=== PATIENT | male | born 1970 | race Caucasian/White ===

== ENCOUNTER → 2018-09-30 | Outpatient (CLI) | payer OTHER ==
--- NOTE | 2018-09-30 15:46 | CT ---
EXAMINATION TYPE: CT abdomen w con DATE OF EXAM: 09/30/2018 COMPARISON: 12/20/2015 HISTORY: 48-year-old male Upper to mid abdominal pain, weight loss TECHNIQUE: Contiguous axial scanning of the abdomen following administration of 100 ml Isovue 300 IV contrast. Delayed images through the kidneys and coronal/sagittal reconstructions performed. CT DLP: 1517.8 mGycm Automated exposure control for dose reduction was used. FINDINGS: Heart normal size without pericardial effusion. Strandy atelectasis at the lung bases without pleural effusion. Stable peripherally oriented vascular blush anterior mid liver, axial image 17 could represent a smal l flash filling hemangioma or vascular shunting. No other focal liver lesion. No biliary ductal dilat ation. Portal venous system is patent. Gallbladder, adrenal glands, right kidney, spleen with tiny anterior splenules, and pancreas appear w ithin normal limits. There is a 1 cm hypodense lesion medial aspect of the left kidney lower pole too small for accurate C T characterization, probable cyst though noted to be new from 2015. This can be reassessed at short i nterval follow-up. No dilated small bowel, free fluid, or free air. No mesenteric or retroperitoneal lymphadenopathy. Tiny fatty umbilical hernia is unchanged. Normal appendix. There is some circumferential wall thickening involving the inferior aspect of the cecum which could represent peripherally positioned stool material or abnormal wall thickening and direct visualization can further evaluate, reference axial image 42 and sagittal image 31. Prominent fatty ileocecal valve likely some normal variation. Mild stool burden. No pericolonic infl ammatory change. Pelvis is not imaged. Bones: No osseous destructive process. IMPRESSION: 1. A 1 CM HYPODENSE LESION LOWER POLE OF THE LEFT KIDNEY TOO SMALL FOR ACCURATE CT CHARACTERIZATION, PROBABLE TINY CYST THOUGH NEW FROM 12/20/2015. THIS IS NEW, PRECAUTIONARY 6 MONTH FOLLOW-UP RECOMME NDED TO EXCLUDE THE LESS LIKELY POSSIBILITY OF AN EARLY SMALL SOLID MASS. 2. MURAL-BASED THICKENING OF THE INFERIOR CECUM COULD REPRESENT ADHERENT STOOL OR NEOPLASM. DIRECT SUALIZATION CAN FURTHER EVALUATE. 3. TINY FAT-CONTAINING UMBILICAL HERNIA IS UNCHANGED.
== END | disposition home or self-care (01) ==
LOC: RADCTMAIN 14:11
PROVIDERS: ATTEND Family Medicine
DX: K42.9 Umbilical hernia without obstruction or gangrene (principal); N28.9 Disorder of kidney and ureter, unspecified
CPT/HCPCS: 74160; Q9967

== ENCOUNTER 2018-10-21 13:50 | Day surgery (SDC) | payer OTHER ==
[2018-10-20 14:23] VITALS: BMI 32.7
[~2018-10-21 13:50] MED LIST: LACTATED RINGERS 1,000 ML IV SCH
[2018-10-21 14:05] VITALS: RESP 16; TEMP 98.8
[2018-10-21] MEDS ORDERED: LIDOCAINE 1% 20 ML VIAL (10MG/ML) FOR IV START INTRADERMA ONE (14:11)
[2018-10-21] MEDS ORDERED: LIDOCAINE 1% INJ 10MG/ML (20 ML MDV) ONE (14:13)
[2018-10-21] MEDS ORDERED: PROPOFOL 10 MG/ML 20 ML VIAL IV ONE (14:13)
[2018-10-21] MEDS ORDERED: MIDAZOLAM 2 MG/2 ML VIAL ONE (14:13)
[2018-10-21] MEDS ORDERED: fentaNYL (PF) 50 MCG/ML 2 ML AMP ONE (14:13)
--- NOTE | 2018-10-21 14:55 | P.PCN ---
Date of Procedure: 10/21/18 Procedure(s) Performed: Procedures: 1. Esophagogastroduodenoscopy and biopsy. 2. Total colonoscopy. Preoperative diagnosis: Change in bowel habits and abnormal CT showing circumferential thickening in the cecum. Postoperative diagnosis: 1. Small sliding hiatal hernia with no obvious esophagitis or complicated reflux disease. 2. Antral gastritis and duodenitis. 3. Colon exam reveals mild diverticulosis, otherwise, within normal limits. Preparation: HalfLytely prep. Sedation: Was provided by anesthesia. Brief clinical history: The patient is a 48-year-old male who I have evaluated in the office earlier this month regarding abdominal pain and change in bowel habits. He tends to have constipation. He had a colonoscopy in 2016 that showed diverticulosis. No dietary triggers. Computed tomography scan of the abdomen last month showed prominent ileocecal valve and circumferential thickening in the cecum. Procedure: With the patient on his left lateral decubitus position and after informed consent and adequate sedation, I passed the Olympus-GIF H 190 video upper endoscope through the cricopharyngeus down the esophagus. GE junction was around 40 cm from the incisors and there was a small sliding hiatal hernia but no obvious esophagitis or complicated reflux disease. The endoscope was then passed into the stomach which was insufflated with air and inspected in detail including the retroflex view in the cardia. There was mottling and erythema in the antrum but no ulcers or erosions. Pyloric channel did not show any ulcers. Duodenal bulb, post bulbar area and descending duodenum were examined and it showed erythema and scattered small erosions in the bulb but no ulcers or b leeding. I obtained biopsies from the duodenum, antrum and esophagus then the endoscope was withdrawn and I proceeded with the colonoscopy. Perianal area did not show any fissures or fistulas. There were no masses felt on digital rectal examination. The Olympus CFH 190L video colonoscope was then inserted in the rectum in the usual fashion and advanced to the cecum. The ileocecal valve and cecum appeared normal. There were few diverticular orifices scattered in the sigmoid with no evidence of acute diverticulitis or strictures. The mucosa appeared healthy. No polyps or tumors were seen. I retroflexed the endoscope in the rectum before the endoscope was withdrawn. The patient tolerated the procedure well. Plan: The patient was reassured. Will await biopsy results and make further plans based on his course and biopsy results.
[2018-10-21 15:09] VITALS: BP 126/83; PULSE 81
== END 2018-10-21 15:30 | disposition home or self-care (01) ==
LOC: ORWHC2ENDO 13:50
DX: K29.70 Gastritis, unspecified, without bleeding (principal); K29.80 Duodenitis without bleeding; K44.9 Diaphragmatic hernia without obstruction or gangrene; K21.0 Gastro-esophageal reflux disease with esophagitis; K31.9 Disease of stomach and duodenum, unspecified; K57.30 Diverticulosis of large intestine without perforation or abscess without bleeding; E66.9 Obesity, unspecified; E16.2 Hypoglycemia, unspecified; F41.9 Anxiety disorder, unspecified; Z79.899 Other long term (current) drug therapy
CPT/HCPCS: 88305; 45378; 43239; J2250; J2001; J3010; J2704

== ENCOUNTER → 2020-11-16 | Outpatient (CLI) | payer OTHER ==
--- NOTE | 2020-11-16 12:21 | P.STRESS ---
- Stress Test Note Stress Test Results/Findings: Exam Performed: stress test Exam Date: 11/16/20 Reason for Exam: Shortness of breath Height: 6 ft 2 in Weight: 131.542 kg Protocol: Ricky Stage: 3 Duration of Exercise: 9:00 Resting Heart Rate: 69 Resting Blood Pressure: 134/89 Maximum Achieved Heart Rate: 168 Maximum Achieved Blood Pressure: 182/70 85% PMHR: 145 100% PMHR: 171 METS: 10.5 Technologist Comment: Stress Test Results/Findings: This is a 50-year-old gentleman with history of ischemic heart disease and family and smoking being evaluated for symptoms of chest pain or shortness of breath and also palpitations. Stress data. Baseline EKG showed sinus rhythm with normal CO interval and QRS duration. Blood pressure at rest is 1 3489 at pulse rate of 69. Patient walked on the Ricky protocol for 9 minutes achieving a maximal heart rate of 168 with a blood pressure 182/70. EKGs taken during and after exercise did not show any changes of ischemia. Patient did not experience any chest pain. Final impression: #1. Negative stress test #2. Patient did not experience chest pain #3. Patient did not feel any palpitations. #4. No arrhythmias
== END | disposition home or self-care (01) ==
LOC: RADNMMAIN 08:44
PROVIDERS: ATTEND Family Medicine
DX: R06.02 Shortness of breath (principal)
CPT/HCPCS: 93017